=== PATIENT | female | born 1950 | race Caucasian/White ===

== ENCOUNTER 2016-09-24 13:02 | Outpatient (CLI) | payer OTHER ==
--- NOTE | 2016-09-24 15:29 | RAD ---
LEFT ANKLE TWO VIEWS: History: Left ankle injury. FINDINGS: Ankle mortise is intact. Soft tissue swelling overlies the lateral malleolus. Secondary ossificati on centers lie adjacent to the medial and lateral malleoli. There is mild osteophytosis. Fluid dis tention of the joint capsule is apparent on the lateral view. IMPRESSION: 1. Mild degenerative changes of the left ankle. Joint effusion. 2. No acute osseous abnormalities are demonstrated. POS: JOSE
== END 2016-09-24 13:03 | disposition home or self-care (01) ==
LOC: BURRAD 13:02
PROVIDERS: ATTEND Family Medicine
DX: S99.912A Unspecified injury of left ankle, initial encounter (principal); M25.572 Pain in left ankle and joints of left foot